=== PATIENT | female | born 1935 | race Two or more races ===

== ENCOUNTER 2017-08-08 17:07 | Inpatient (IN) | payer BC, OTHER ==
[~2017-08-08] VITALS: Ht 157.5 cm; Wt 81.7 kg
[2017-08-08] MEDS ORDERED: SODIUM CHLORIDE 0.9% 1,000 ML IV ONE ×2 (19:17)
[2017-08-08] MEDS ORDERED: AMLO5TAB2 PO (21:06)
[2017-08-08] MEDS ORDERED: FURO40TA PO (21:06)
[2017-08-08] MEDS ORDERED: LOVA20TA4 PO (21:06)
[2017-08-08] MEDS ORDERED: FERR-20 PO (21:06)
[2017-08-08] MEDS ORDERED: TAMS0.4C36 PO (21:06)
[2017-08-08] MEDS ORDERED: CLON0.1T PO (21:06)
[2017-08-08 21:07] LABS: Basophils # (auto) 0 uL; Basophils % (auto) 0.3 % (0.0-2.0); Eosinophils # (auto) 0.1 uL; Eosinophils % (auto) 1.1 % (0.0-7.0); Hematocrit 28.4 % (36.0-46.0); Hemoglobin 9.2 g/dL (12.2-16.2); Lymphocytes # (auto) 1.4 uL; Lymphocytes % (auto) 19.4 % (10.0-50.0); Mean Corpuscular Hgb Conc. 32.4 g/dL (32.0-36.0); Mean Corpuscular Volume 89.6 fL (80.0-100.0); Monocytes # (auto) 1.2 uL; Monocytes % (auto) 16.3 % (0.0-12.0); Neutrophils # (auto) 4.5 uL; Neutrophils % (auto) 62.9 % (37.0-80.0); Platelet Count (auto) 314 10^3/uL (140-450); Red Blood Cells 3.17 10^6/uL (4.0-5.20); Red Cell Distribution Width 14.4 % (11.8-14.3); White Blood Cell 7.2 10^3/uL (4.4-10.8)
[2017-08-08] MEDS ORDERED: LEVEMIR SC (21:07)
[2017-08-08] MEDS ORDERED: INSLISPI SC (21:07)
[2017-08-08] MEDS ORDERED: METO-158 PO (21:07)
[2017-08-08] MEDS ORDERED: cloNIDine HCL 0.1 MG TAB ONE (21:17)
[2017-08-08 21:19] LABS: Albumin 2.1 g/dL (3.4-5.0); Potassium 4.4 mmol/L (3.5-5.1)
[2017-08-08 21:21] LABS: BUN/Creatinine Ratio 18.2
[2017-08-08 21:26] LABS: Bilirubin, Total 0.6 mg/dL (0.2-1.0)
[2017-08-08] MEDS ORDERED: cloNIDine HCL 0.1 MG TAB PO ONE (21:30)
[2017-08-08 21:36] LABS: Urine Bacteria MANY /hpf (None Seen); Urine Blood TRACE /uL (Negative); Urine Mucus FEW (None Seen); Urine Specific Gravity 1.008 (1.001-1.035); Urine WBC 37 /hpf (0 - 5)
[2017-08-08] MEDS ORDERED: LEVOFLOXACIN 500MG 100 ML IV ONE (22:00)
[2017-08-08] MEDS ORDERED: ENOXAPARIN SOD 80 MG/0.8ML SYRINGE SC ONE (22:00)
[2017-08-09] MEDS ORDERED: ONDANSETRON HCL 4 MG/2 ML VIAL IV PRN (00:15)
[2017-08-09] MEDS ORDERED: NITROGLYCERIN 0.4 MG SL TAB SL PRN (00:15)
[2017-08-09] MEDS ORDERED: TEMAZEPAM 15 MG CAP PO PRN (00:15)
[2017-08-09] MEDS ORDERED: DEXTROSE (50%) 50ML SYRG IV PRN (00:15)
[2017-08-09] MEDS ORDERED: MORPHINE SULFATE 10 MG/ML INJ 1ML SDV IV PRN (00:15)
[2017-08-09] MEDS ORDERED: METOPROLOL TARTRATE 1MG/1ML-5ML VIAL IV ONE ×2 (00:15→01:00)
[2017-08-09 01:45] VITALS: BP 163/70
[2017-08-09 05:00] VITALS: BP 160/75
[2017-08-09] MEDS: InsuLIN REG 1unit/0.01ml Soln (100units/ml) SC SCH ×3 (06:00→18:34)
[2017-08-09] MEDS ORDERED: INFLUENZA QUAD 2017-2018 0.5 ML SYRG IM ONE (06:00)
[2017-08-09] MEDS: ACETAMINOPHEN 325 MG TAB PO PRN ×2 (06:11→12:51)
[2017-08-09] MEDS: cloNIDine HCL 0.1 MG TAB PO SCH ×3 (06:11→21:48)
[2017-08-09] MEDS: ACCU-CHEK COMFORT CURVE STRIP VI SCH ×3 (06:12→18:34)
[2017-08-09 09:00] VITALS: BP 152/58
[2017-08-09] MEDS ORDERED: FUROSEMIDE 40 MG TAB PO SCH (10:00)
[2017-08-09] MEDS ORDERED: HEPARIN SODIUM (PORCINE) 5000 UNITS/ML 1ML VIAL SC SCH (10:00)
[2017-08-09] MEDS ORDERED: cefTRIAXone 1GM/10ml IVPUSH 10 ML IV ONE (11:00)
[2017-08-09] MEDS ORDERED: VANCOMYCIN PER PHARMACY 0 MG IV SCH (11:00)
[2017-08-09] MEDS: PANTOPRAZOLE 40 MG TAB PO SCH (11:12)
[2017-08-09] MEDS: METOPROLOL TARTRATE 50 MG TAB PO SCH ×2 (11:12→21:48)
[2017-08-09] MEDS: ASPirin 81 mg TAB PO SCH (11:13)
[2017-08-09] MEDS: amLODIPine BESYLATE 5 MG TAB PO SCH (11:14)
[2017-08-09 13:00] VITALS: BP 157/65
[2017-08-09] MEDS: VANCOMYCIN 1GM/250ML 250 ML IV SCH (14:29)
[2017-08-09] MEDS: Boost Glucose Control 8 Ounces PO SCH ×2 (15:37→18:35)
[2017-08-09 17:00] VITALS: BP 150/64
[2017-08-09] MEDS: PRAVASTATIN SODIUM 20 MG TAB PO SCH (21:47)
[2017-08-09 22:00] VITALS: BP 163/68
[2017-08-09] MEDS ORDERED: LEVOFLOXACIN 250MG 50 ML IV SCH (22:00)
[2017-08-10] MEDS: ACCU-CHEK COMFORT CURVE STRIP VI SCH ×5 (00:04→23:47)
[2017-08-10] MEDS: ACETAMINOPHEN 325 MG TAB PO PRN ×2 (04:15→21:33)
[2017-08-10 05:00] VITALS: BP 162/72
[2017-08-10] MEDS: InsuLIN REG 1unit/0.01ml Soln (100units/ml) SC SCH ×5 (05:53→23:47)
[2017-08-10] MEDS: cloNIDine HCL 0.1 MG TAB PO SCH ×3 (05:56→21:32)
[2017-08-10 06:19] LABS: Hematocrit 26.2 % (36.0-46.0); Hemoglobin 8.7 g/dL (12.2-16.2); Mean Corpuscular Hemoglobin 29.1 pg (28.0-32.0); Mean Corpuscular Volume 88.1 fL (80.0-100.0); Platelet Count (auto) 257 10^3/uL (140-450); Red Blood Cells 2.98 10^6/uL (4.0-5.20); Red Cell Distribution Width 14.6 % (11.8-14.3); White Blood Cell 5.5 10^3/uL (4.4-10.8)
[2017-08-10 06:21] LABS: INR 1.11 (0.9-1.15); Partial Thromboplastin Time 34.5 sec (22.64-33.71); Prothrombin Time 12.1 sec (9.37-12.3)
[2017-08-10 06:22] LABS: Band Neutrophils % (manual) 0; Basophils % (manual) 0 (0.0-2.0); Blast Cells 0; Metamyelocytes % 0; Myelocytes % 0; Promyelocytes % 0; Reactive Lymphocytes 0
[2017-08-10 06:56] LABS: Eosinophils % (manual) 1 (0-7); Lymphocytes % (manual) 18 (10.0-50.0); Monocytes % (manual) 6 (0-12)
[2017-08-10] MEDS: HYDROcodone-ACET 5/325MG TAB PO PRN ×5 (07:43→23:32)
[2017-08-10 09:00] VITALS: BP 133/60
[2017-08-10] MEDS: amLODIPine BESYLATE 5 MG TAB PO SCH (09:18)
[2017-08-10] MEDS: METOPROLOL TARTRATE 50 MG TAB PO SCH ×2 (09:19→21:32)
[2017-08-10] MEDS: PANTOPRAZOLE 40 MG TAB PO SCH (09:20)
[2017-08-10] MEDS: ASPirin 81 mg TAB PO SCH (09:20)
[2017-08-10] MEDS: Boost Glucose Control 8 Ounces PO SCH ×3 (09:20→18:02)
[2017-08-10] MEDS: cefTRIAXone 1GM/10ml IVPUSH 10 ML IV SCH (09:21)
[2017-08-10] MEDS: HYDROmorphone HCL 2 MG/ML VL IV PRN ×3 (11:40→18:58)
[2017-08-10] MEDS ORDERED: ARTIFICIAL TEARS 15ml EACHEYE PRN (12:00)
[2017-08-10] MEDS ORDERED: ARTIFICIAL TEARS 15ml EACHEYE ONE (12:00)
[2017-08-10 13:00] VITALS: BP 137/49
[2017-08-10] MEDS: VANCOMYCIN 1GM/250ML 250 ML IV SCH (13:13)
[2017-08-10] MEDS: SODIUM CHLORIDE 0.9% 1,000 ML IV SCH (13:18)
[2017-08-10] MEDS ORDERED: OPHTHALMIC IRRIGATION SOLN 30ML EACHEYE PRN (13:30)
[2017-08-10 16:54] VITALS: BP 150/60
[2017-08-10] MEDS: PRAVASTATIN SODIUM 20 MG TAB PO SCH (21:32)
[2017-08-11 05:15] VITALS: BP 152/66
[2017-08-11] MEDS: cloNIDine HCL 0.1 MG TAB PO SCH ×3 (05:40→22:11)
[2017-08-11] MEDS: ACCU-CHEK COMFORT CURVE STRIP VI SCH ×3 (05:40→17:40)
[2017-08-11] MEDS: SODIUM CHLORIDE 0.9% 1,000 ML IV SCH ×2 (05:40→14:48)
[2017-08-11] MEDS: InsuLIN REG 1unit/0.01ml Soln (100units/ml) SC SCH ×3 (05:41→17:40)
[2017-08-11] MEDS: HYDROcodone-ACET 5/325MG TAB PO PRN ×3 (05:45→22:34)
[2017-08-11 06:45] LABS: Basophils # (auto) 0 uL; Basophils % (auto) 0.4 % (0.0-2.0); Eosinophils # (auto) 0.2 uL; Eosinophils % (auto) 3.2 % (0.0-7.0); Hematocrit 27.7 % (36.0-46.0); Lymphocytes % (auto) 15.7 % (10.0-50.0); Mean Corpuscular Hemoglobin 28.9 pg (28.0-32.0); Mean Corpuscular Hgb Conc. 32.5 g/dL (32.0-36.0); Mean Corpuscular Volume 88.7 fL (80.0-100.0); Monocytes # (auto) 0.6 uL; Monocytes % (auto) 9.7 % (0.0-12.0); Neutrophils # (auto) 4.6 uL; Nucleated Red Blood Cells % 0.1 %; Platelet Count (auto) 289 10^3/uL (140-450); Red Blood Cells 3.12 10^6/uL (4.0-5.20); Red Cell Distribution Width 14.3 % (11.8-14.3); White Blood Cell 6.5 10^3/uL (4.4-10.8)
[2017-08-11 07:06] LABS: BUN/Creatinine Ratio 14.7; Calcium 7.5 mg/dL (8.5-10.1); Magnesium 1.8 mg/dL (1.6-2.6); Potassium 4.3 mmol/L (3.5-5.1)
[2017-08-11 09:00] VITALS: BP 151/39
[2017-08-11] MEDS: cefTRIAXone 1GM/10ml IVPUSH 10 ML IV SCH (09:24)
[2017-08-11] MEDS: Boost Glucose Control 8 Ounces PO SCH ×3 (09:24→17:40)
[2017-08-11] MEDS: amLODIPine BESYLATE 5 MG TAB PO SCH (09:25)
[2017-08-11] MEDS: PANTOPRAZOLE 40 MG TAB PO SCH (09:26)
[2017-08-11] MEDS: ASPirin 81 mg TAB PO SCH (09:26)
[2017-08-11] MEDS: METOPROLOL TARTRATE 50 MG TAB PO SCH ×2 (09:26→22:00)
[2017-08-11 13:00] VITALS: BP 151/54
[2017-08-11] MEDS: VANCOMYCIN 1GM/250ML 250 ML IV SCH (13:30)
[2017-08-11] MEDS ORDERED: MAGNESIUM SULFATE 1GM/100ML 100 ML IV ONE (13:45)
[2017-08-11] MEDS ORDERED: FLUCONAZOLE 200MG/100ML 100 ML IV ONE (13:45)
[2017-08-11] MEDS ORDERED: MULTIPLE VITAMINS W/ MINERALS TAB PO ONE (14:15)
[2017-08-11] MEDS ORDERED: ASCORBIC ACID 500 MG TAB PO ONE (14:15)
[2017-08-11] MEDS: HYDROmorphone HCL 2 MG/ML VL IV PRN (15:52)
[2017-08-11 17:00] VITALS: BP 148/67
[2017-08-11 21:58] VITALS: BP 144/74
[2017-08-11] MEDS: ASCORBIC ACID 500 MG TAB PO SCH (22:11)
[2017-08-11] MEDS: PRAVASTATIN SODIUM 20 MG TAB PO SCH (22:12)
[2017-08-12] VITALS (9 sets, daily range): BP systolic 128–164; BP diastolic 46–79
[2017-08-12] MEDS: HYDROcodone-ACET 5/325MG TAB PO PRN ×2 (05:36→13:55)
[2017-08-12] MEDS: cloNIDine HCL 0.1 MG TAB PO SCH ×3 (05:38→21:54)
[2017-08-12] MEDS: ACCU-CHEK COMFORT CURVE STRIP VI SCH ×5 (05:38→23:52)
[2017-08-12] MEDS: InsuLIN REG 1unit/0.01ml Soln (100units/ml) SC SCH ×5 (05:38→23:53)
[2017-08-12] MEDS: Boost Glucose Control 8 Ounces PO SCH ×3 (08:00→18:00)
[2017-08-12] MEDS ORDERED: ADENOSINE 65 MG in GIVE UN-DILUTED 0 ML IV STA (08:03)
[2017-08-12] MEDS: amLODIPine BESYLATE 5 MG TAB PO SCH ×2 (10:00→12:21)
[2017-08-12] MEDS ORDERED: FLUCONAZOLE 200MG/100ML 100 ML IV SCH (10:00)
[2017-08-12] MEDS: cefTRIAXone 1GM/10ml IVPUSH 10 ML IV SCH (10:39)
[2017-08-12] MEDS: SODIUM CHLORIDE 0.9% 1,000 ML IV SCH (10:40)
[2017-08-12] MEDS: ASPirin 81 mg TAB PO SCH (10:40)
[2017-08-12] MEDS: ASCORBIC ACID 500 MG TAB PO SCH ×2 (10:40→21:54)
[2017-08-12] MEDS: PANTOPRAZOLE 40 MG TAB PO SCH (10:41)
[2017-08-12] MEDS: MULTIPLE VITAMINS W/ MINERALS TAB PO SCH (10:41)
[2017-08-12] MEDS: METOPROLOL TARTRATE 50 MG TAB PO SCH ×2 (10:41→21:57)
[2017-08-12] MEDS ORDERED: LACTULOSE 20Gm/30ML SOLN PO ONE (12:45)
[2017-08-12] MEDS: VANCOMYCIN 1GM/250ML 250 ML IV SCH (13:00)
[2017-08-12] MEDS: PRAVASTATIN SODIUM 20 MG TAB PO SCH (21:57)
[2017-08-13] MEDS ORDERED: VANCOMYCIN 1GM/250ML 250 ML IV SCH (05:00)
[2017-08-13 05:07] VITALS: BP 153/36
[2017-08-13] MEDS: cloNIDine HCL 0.1 MG TAB PO SCH ×3 (05:46→22:29)
[2017-08-13] MEDS: InsuLIN REG 1unit/0.01ml Soln (100units/ml) SC SCH ×3 (05:50→18:00)
[2017-08-13] MEDS: ACCU-CHEK COMFORT CURVE STRIP VI SCH ×3 (05:50→18:13)
[2017-08-13 06:40] LABS: Red Blood Cells 2.81 10^6/uL (4.0-5.20); Red Cell Distribution Width 14.2 % (11.8-14.3)
[2017-08-13 06:43] LABS: Hematocrit 24.7 % (36.0-46.0); Hemoglobin 8.2 g/dL (12.2-16.2); Mean Corpuscular Hemoglobin 29.2 pg (28.0-32.0); Mean Corpuscular Hgb Conc. 33.1 g/dL (32.0-36.0); Platelet Count (auto) 278 10^3/uL (140-450); White Blood Cell 6.8 10^3/uL (4.4-10.8)
[2017-08-13 06:51] LABS: Band Neutrophils % (manual) 0; Basophils % (manual) 0 (0.0-2.0); Blast Cells 0; Promyelocytes % 0; Reactive Lymphocytes 0
[2017-08-13 07:05] LABS: Albumin 1.7 g/dL (3.4-5.0); Bilirubin, Total 0.3 mg/dL (0.2-1.0); Calcium 7.6 mg/dL (8.5-10.1); Potassium 4.5 mmol/L (3.5-5.1); Total Protein 5.4 g/dL (6.4-8.2)
[2017-08-13 07:12] LABS: Eosinophils % (manual) 4 (0-7); Lymphocytes % (manual) 22 (10.0-50.0); Metamyelocytes % 1; Monocytes % (manual) 8 (0-12); Myelocytes % 1
[2017-08-13 08:00] VITALS: BP 135/46
[2017-08-13] MEDS: Boost Glucose Control 8 Ounces PO SCH ×3 (08:57→18:13)
[2017-08-13] MEDS: cefTRIAXone 1GM/10ml IVPUSH 10 ML IV SCH (09:23)
[2017-08-13 09:24] VITALS: BP 135/49
[2017-08-13] MEDS: HYDROmorphone HCL 2 MG/ML VL IV PRN ×2 (09:25→14:41)
[2017-08-13] MEDS: MULTIPLE VITAMINS W/ MINERALS TAB PO SCH (10:25)
[2017-08-13] MEDS: PANTOPRAZOLE 40 MG TAB PO SCH (10:26)
[2017-08-13] MEDS: ASCORBIC ACID 500 MG TAB PO SCH ×2 (10:27→22:30)
[2017-08-13] MEDS: METOPROLOL TARTRATE 50 MG TAB PO SCH ×2 (10:27→22:29)
[2017-08-13] MEDS: ASPirin 81 mg TAB PO SCH (10:28)
[2017-08-13] MEDS: FLUCONAZOLE 100 MG TAB PO SCH (10:37)
[2017-08-13 12:47] VITALS: BP 104/60
[2017-08-13 16:43] VITALS: BP 127/68
[2017-08-13 22:00] VITALS: BP 169/34
[2017-08-13] MEDS: PRAVASTATIN SODIUM 20 MG TAB PO SCH (22:29)
[2017-08-14] MEDS: HYDROmorphone HCL 2 MG/ML VL IV PRN (00:59)
[2017-08-14] MEDS: ACCU-CHEK COMFORT CURVE STRIP VI SCH ×2 (00:59→05:41)
[2017-08-14 03:50] LABS: Urine Amorphous Crystal FEW /hpf (None Seen); Urine Bacteria FEW /hpf (None Seen); Urine Blood 1+ /uL (Negative); Urine Specific Gravity 1.007 (1.001-1.035); Urine WBC 53 /hpf (0 - 5)
[2017-08-14 04:53] VITALS: BP 157/42
[2017-08-14] MEDS: InsuLIN REG 1unit/0.01ml Soln (100units/ml) SC SCH ×4 (05:41→18:00)
[2017-08-14] MEDS: cloNIDine HCL 0.1 MG TAB PO SCH ×3 (05:42→22:00)
[2017-08-14 07:22] LABS: INR 0.99 (0.9-1.15); Partial Thromboplastin Time 32.7 sec (22.64-33.71); Prothrombin Time 10.8 sec (9.37-12.3)
[2017-08-14 08:00] VITALS: BP 139/54
[2017-08-14] MEDS: Boost Glucose Control 8 Ounces PO SCH ×3 (08:00→18:00)
[2017-08-14 09:00] VITALS: BP 139/54
[2017-08-14] MEDS: cefTRIAXone 1GM/10ml IVPUSH 10 ML IV SCH (09:00)
[2017-08-14] MEDS ORDERED: IOHEXOL 350 MG/ML 100ML IJ ONE (09:32)
[2017-08-14] MEDS ORDERED: LIDOCAINE 2%HCL (LOCAL ANESTH.) INJ 20ML MDV ONE (09:33)
[2017-08-14] MEDS ORDERED: ANGIOMAX 250 MG VIAL IV ONE (09:40)
[2017-08-14] MEDS ORDERED: MIDAZOLAM HCL 1MG/1ML-2 ML VIAL ONE ×2 (09:41→12:22)
[2017-08-14] MEDS ORDERED: SODIUM CHL 0.9% 50 ML ONE (09:41)
[2017-08-14] MEDS ORDERED: fentaNYL CITRATE 100 MCG/2 ML VL ONE ×3 (09:41→12:22)
[2017-08-14] MEDS: FLUCONAZOLE 100 MG TAB PO SCH (10:00)
[2017-08-14] MEDS: PANTOPRAZOLE 40 MG TAB PO SCH (10:00)
[2017-08-14] MEDS: ASCORBIC ACID 500 MG TAB PO SCH ×2 (10:00→22:00)
[2017-08-14] MEDS: METOPROLOL TARTRATE 50 MG TAB PO SCH ×2 (10:00→23:16)
[2017-08-14] MEDS ORDERED: amLODIPine BESYLATE 5 MG TAB PO SCH (10:00)
[2017-08-14] MEDS: ASPirin 81 mg TAB PO SCH (10:00)
[2017-08-14] MEDS: MULTIPLE VITAMINS W/ MINERALS TAB PO SCH (10:00)
[2017-08-14] MEDS ORDERED: CLOPIDOGREL 300 MG TAB ONE (10:45)
[2017-08-14] MEDS ORDERED: ONDANSETRON HCL 4 MG/2 ML VIAL IV ONE (12:15)
[2017-08-14] MEDS ORDERED: ePHEDrine SULFATE 50 MG/ML AMP IV PRN (12:15)
[2017-08-14] MEDS ORDERED: MIDAZOLAM HCL 1MG/1ML-2 ML VIAL IV PRN (12:15)
[2017-08-14] MEDS ORDERED: MORPHINE SULFATE 10 MG/ML INJ 1ML SDV IV PRN (12:15)
[2017-08-14] MEDS ORDERED: LABETALOL HCL 5 MG/ML 4ML SYRINGE IV PRN (12:15)
[2017-08-14] MEDS ORDERED: ACCU-CHEK COMFORT CURVE STRIP VI ONE (12:15)
[2017-08-14] MEDS ORDERED: MORPHINE SULF INJ 2 MG/ML SYRINGE 1ML IV PRN (12:15)
[2017-08-14] MEDS ORDERED: HYDROmorphone HCL 2 MG/ML VL IV PRN (12:15)
[2017-08-14] MEDS ORDERED: LEVOFLOXACIN 500MG 100 ML IV ONE ×2 (12:27→12:30)
[2017-08-14] MEDS ORDERED: PROPOFOL 10 MG/ML 20 ML IV ONE (12:35)
[2017-08-14] MEDS ORDERED: CLINDAMYCIN 600MG IV 50 ML IV ONE (12:51)
[2017-08-14 17:08] VITALS: BP 139/54
[2017-08-14 22:00] VITALS: BP 107/53
[2017-08-14] MEDS: PRAVASTATIN SODIUM 20 MG TAB PO SCH (22:00)
[2017-08-15] MEDS: InsuLIN REG 1unit/0.01ml Soln (100units/ml) SC SCH
[2017-08-15] MEDS ORDERED: ACCU-CHEK COMFORT CURVE STRIP VI SCH
[2017-08-15] MEDS ORDERED: FUROSEMIDE 40 MG/4 ML VIAL IV ONE (00:30)
[2017-08-15] MEDS ORDERED: LORazepam 2MG/ML-1ML VIAL IV PRN (00:30)
[2017-08-15] MEDS ORDERED: SODIUM CHLORIDE 0.9% 250 ML IV ONE (01:45)
[2017-08-15] MEDS ORDERED: MORPHINE SULFATE 10 MG/ML INJ 1ML SDV IV ONE (01:45)
[2017-08-15] MEDS ORDERED: SODIUM CHLORIDE 0.9% 500 ML IV ONE (01:45)
[2017-08-15] MEDS ORDERED: SODIUM BICARBONATE 8.4 % INJ 50ML VIAL IV ONE (02:45)
[2017-08-15] MEDS ORDERED: SODIUM BICARBONATE 8.4% INJ 50ML SYRINGE ONE ×2 (02:45→03:45)
[2017-08-15] MEDS ORDERED: SUCCINYLCHOLINE CHLORIDE 20 MG/ML 10ML VIAL IV ONE (03:02)
[2017-08-15] MEDS ORDERED: ETOMIDATE (2MG/ML) 20ML VIAL IV ONE (03:02)
[2017-08-15] MEDS ORDERED: NOREPINEPHRINE 8 MG/250ML KIT 250 ML IV ONE (03:23)
[2017-08-15] MEDS ORDERED: LEVOFLOXACIN 500MG 100 ML IV SCH ×2 (10:00)
[2017-08-15] MEDS ORDERED: LEVOFLOXACIN 250MG 50 ML IV SCH ×2 (10:00)
[2017-08-15] MEDS ORDERED: SODIUM BICARBONATE 8.4% INJ 50ML SYRINGE IV ONE (11:25)
[2017-08-15] MEDS ORDERED: EPINEPHrine HCL 1 MG/10 ML SYRG IV ONE (11:25)
== END 2017-08-15 11:26 | disposition expired | DRG 853 ==
LOC: ER 17:07 → EDBD 17:07 → TELE 17:08 → TELE-WESTW 08-09 01:45
PROVIDERS: ADMIT Nurse Practitioner; ATTEND Internal Medicine
PROC: 027035Z Dilation of Coronary Artery, One Artery with Two Drug-eluting Intraluminal Devices, Percutaneous Approach (ICD-10-PCS; 2017-08-14)
PROC: B2111ZZ Fluoroscopy of Multiple Coronary Arteries using Low Osmolar Contrast (ICD-10-PCS; 2017-08-14)
PROC: B2151ZZ Fluoroscopy of Left Heart using Low Osmolar Contrast (ICD-10-PCS; 2017-08-14)
PROC: 0JBN0ZZ Excision of Right Lower Leg Subcutaneous Tissue and Fascia, Open Approach (ICD-10-PCS; 2017-08-14)
PROC: 0HRKXK3 Replacement of Right Lower Leg Skin with Nonautologous Tissue Substitute, Full Thickness, External Approach (ICD-10-PCS; 2017-08-14)
PROC: B41F1ZZ Fluoroscopy of Right Lower Extremity Arteries using Low Osmolar Contrast (ICD-10-PCS; 2017-08-14)
PROC: 4A023N7 Measurement of Cardiac Sampling and Pressure, Left Heart, Percutaneous Approach (ICD-10-PCS; principal; 2017-08-14 12:15)
DX: A41.81 Sepsis due to Enterococcus (principal); E43 Unspecified severe protein-calorie malnutrition; I21.4 Non-ST elevation (NSTEMI) myocardial infarction; L89.151 Pressure ulcer of sacral region, stage 1; I96 Gangrene, not elsewhere classified; E11.22 Type 2 diabetes mellitus with diabetic chronic kidney disease; E11.52 Type 2 diabetes mellitus with diabetic peripheral angiopathy with gangrene; I48.2 Chronic atrial fibrillation; N39.0 Urinary tract infection, site not specified; Z66 Do not resuscitate; D64.9 Anemia, unspecified; I70.203 Unspecified atherosclerosis of native arteries of extremities, bilateral legs; E66.9 Obesity, unspecified; I25.10 Atherosclerotic heart disease of native coronary artery without angina pectoris; S81.801A Unspecified open wound, right lower leg, initial encounter; X58.XXXA Exposure to other specified factors, initial encounter; B95.61 Methicillin susceptible Staphylococcus aureus infection as the cause of diseases classified elsewhere; N18.3 Chronic kidney disease, stage 3 (moderate); I12.9 Hypertensive chronic kidney disease with stage 1 through stage 4 chronic kidney disease, or unspecified chronic kidney disease; Z68.32 Body mass index [BMI] 32.0-32.9, adult; Z80.3 Family history of malignant neoplasm of breast; Z83.3 Family history of diabetes mellitus; Z88.0 Allergy status to penicillin; Z79.899 Other long term (current) drug therapy; Z79.4 Long term (current) use of insulin; Z71.3 Dietary counseling and surveillance; Y93.89 Activity, other specified; Y92.89 Other specified places as the place of occurrence of the external cause; Y99.8 Other external cause status; Z23 Encounter for immunization
CPT/HCPCS: 51702; 92928; 93458; 96361; 96365; 96372; 96375; 99285; G0278; 36415; 36600; 71045; 78452; 80048; 80053; 80061; 80202; 81001; 82805; 82962; 83036; 83605; 83735; 83880; 84484; 85007; 85025; 85027; 85610; 85730; 87040; 87077; 87081; 87086; 87088; 87186; 87205; 93005; 93017; 93306; 93926; 94002; 97163; 97530; 99152; C1874; J0153; J0330; J1450; J1815; J1956; J2250; J2405; J2704; J3490; Q4131